=== PATIENT | female | born 1990 | race Caucasian/White ===

== ENCOUNTER 2017-04-12 16:43 | Emergency (ER) | payer SELFPAY ==
[2017-04-12 18:50] LABS: BASOPHIL % 0.1 % (0-2); PLATELET COUNT 187 x10^3mcL (130-400); RED CELL DISTRIBUTION WIDTH 13.7 % (11.5-14.5)
[2017-04-12 18:50] LABS: microscopic required? YES; urine erythrocyte 2+ (NEGATIVE)
[2017-04-12 19:02] LABS: CALCIUM 9.5 mg/dL (8.5-10.1); CARBON DIOXIDE 30.6 mmol/L (21-32); CHLORIDE SERUM 98 mmol/L (98-107); CREATININE SERUM 0.9 mg/dL (0.6-1.0); GFR1 > 60 mL/min; GLUCOSE SERUM 100 mg/dL (74-106); POTASSIUM SERUM 4.1 mmol/L (3.5-5.1); SODIUM SERUM 137 mmol/L (136-145)
[2017-04-12 19:06] LABS: ALBUMIN 3.3 g/dL (3.4-5.0); ALKALINE PHOSPHATASE 198 U/L (46-116); ALT/SGPT 235 U/L (14-59); AMYLASE 33 U/L (25-115); AST/SGOT 237 U/L (15-37); BILIRUBIN TOTAL 0.57 mg/dL (0.20-1.00); LIPASE 122 IU/L (73-393); TOTAL PROTEIN, SERUM 7.9 g/dL (6.4-8.2)
[2017-04-12 20:09] VITALS: BP 106/66
== END 2017-04-12 20:09 | disposition home or self-care (01) ==
LOC: ED 16:43
PROVIDERS: Emergency Medicine
DX: N39.0 Urinary tract infection, site not specified (principal); R94.5 Abnormal results of liver function studies; E46 Unspecified protein-calorie malnutrition
CPT/HCPCS: 83880; 87804; J1885; J2405; J7030